=== PATIENT | female | born 2005 | race Two or more races ===

== ENCOUNTER 2023-11-27 05:38 | Emergency (ER) | payer OTHER ==
[~2023-11-27] VITALS: Ht 160 cm; Wt 62.6 kg
[2023-11-27 09:47] LABS: COCAINE NEGATIVE (NEGATIVE); METHADONE NEGATIVE (NEGATIVE); OPIATES NEGATIVE (NEGATIVE); THC ( Cannabinoids) NEGATIVE (NEGATIVE)
== END 2023-11-27 10:35 | disposition home or self-care (01) ==
LOC: ER 05:39 → EMR PED 05:39
PROVIDERS: Pediatrics
DX: R00.0 Tachycardia, unspecified (principal); I49.9 Cardiac arrhythmia, unspecified; R07.89 Other chest pain